=== PATIENT | male | born 1945 | race Caucasian/White ===

== ENCOUNTER 2023-02-19 08:57 | Inpatient (IN) | payer MEDICARE ==
[2023-02-19] MEDS ORDERED: Cefepime 2 GM VIAL ONE (09:13)
[2023-02-19] MEDS ORDERED: Acetaminophen 500 MG TAB ONE (09:26)
[2023-02-19] MEDS ORDERED: VANCOMYCIN 1.75 GM/500 ML BAG 1.75 GM in Premix Bag 1 BAG IVPB SCH (09:30)
[2023-02-19 09:54] LABS: Hemoglobin 13.7 g/dL (14.0-18.0); Mean Corpuscular HGB CONC 33.6 g/dL (32.0-36.0); Mean Corpuscular Hemoglobin 31.9 pg (27.0-31.0); Mean Platelet Volume 7.4 fL (7.4-10.4); Platelet Count 206 10x3/uL (130-400); RBC Distribution Width 12.8 % (11.5-14.5); Red Blood Cell (RBC) Count 4.28 mill/uL (4.70-6.10); White Blood Cell (WBC) Count 14.1 10x3/uL (4.8-10.8)
[2023-02-19 10:13] LABS: INR-International Normal Ratio 1.2; PTT 31.6 sec (22.9-36.1); Prothrombin Time 15.8 sec (12.0-14.7)
[2023-02-19 10:18] LABS: ALT (SGPT) 926 U/L (8-55); AST (SGOT) 916 U/L (5-34); Albumin 3.6 g/dL (3.4-4.8); Alkaline Phosphatase 76 U/L (40-110); Anion Gap 16 mmol/L (10-20); BUN (Urea Nitrogen) 30 mg/dL (8.4-25.7); Bilirubin, Total 1.2 mg/dL (0.2-1.2); Calc. Creatinine Clearance 0 mL/min (70-130); Calcium 9.7 mg/dL (7.8-10.44); Carbon Dioxide 21 mmol/L (23-31); Chloride 104 mmol/L (98-107); Estimated GFR 24; Globulin 3.4 g/dL (2.4-3.5); Glucose 131 mg/dL (83-110); Potassium 4.2 mmol/L (3.5-5.1); Sodium 137 mmol/L (136-145)
[2023-02-19 10:24] LABS: Band 44 % (5-11); MDiff Complete? YES; Metamyelocyte 12 % (0-0); Myelocyte 1 % (0-0); Neutrophil 43 % (42-75); Platelet Morphology Comment Appears Adequate; Polychromasia SLIGHT = 2-3 cells (100X) (0-2/hpf); Reflex for Review?? YES; Vacuoles MARKED
[2023-02-19 11:16] LABS: Bacteria/HPF 4+ HPF (None Seen); Bilirubin Negative (Negative); Blood, Urine 2+ (Negative); Clarity Turbid (Clear); Glucose, Urine (Dipstick) Normal (Negative); Ketone, Urine Negative (Negative); Leukocyte 250 Leu/uL (Negative); Nitrite 1+ (Negative); Protein, Urine (Dipstick) 20 mg/dL (Neg-Trace); Squamous Epithelial 0-3 HPF (0-3); Urobilinogen Normal mg/dL (Less than 2); WBC/HPF 21-50 HPF (0-3); pH, Urine 6.5 (5.0-9.0)
[2023-02-19] MEDS ORDERED: NOREPINEPHRINE 8 MG/250 ML-D5W 250 ML ONE (12:46)
[2023-02-19 13:03] LABS: SARS-CoV-2 NAA Rapid Test Not Detected (NotDetected)
[2023-02-19 13:52] LABS: Lactic Acid 3.1 mmol/L (0.5-2.2)
[2023-02-19] MEDS ORDERED: Calcium Carbonate 500 MG ChewTAB PO PRN (15:20)
[2023-02-19] MEDS ORDERED: Ondansetron PF 4 MG/2 ML Vial IVP PRN (15:20)
[2023-02-19] MEDS ORDERED: Ondansetron ODT 4 MG TAB PO PRN (15:20)
[2023-02-19] MEDS ORDERED: NOREPINEPHRINE 8 MG/250 ML-D5W 250 ML IVPB PRN (15:24)
[2023-02-19] MEDS ORDERED: VANCOMYCIN IVPB PRN (15:29)
[2023-02-19 18:27] LABS: Acetaminophen Less than 10.0 mcg/mL (10.0-30.0); Magnesium 1.8 mg/dL (1.6-2.6)
[2023-02-19 18:47] LABS: HBCM Index 0.09 S/CO (0-0.79); HBSAg Index 0.29 S/CO (0-0.99); Hep A IgM AB Non-Reactive S/CO (NonReactive); Hep A IgM S/CO 0.21 S/CO (0-0.79); Hep B Surf Ag Non-Reactive S/CO (NonReactive); Hep C IgG Ab Non-Reactive S/CO (NonReactive); Hep C Index 0.15 S/CO (0-0.79); Hepatitis B Core IgM Abs Non-Reactive S/CO (NonReactive)
[2023-02-19] MEDS ORDERED: Magnesium 2 GM/50 ML(in water) 2 GM in Premix Bag 1 BAG IVPB SCH (19:00)
[2023-02-19 20:00] LABS: Albumin 3.3 g/dL (3.4-4.8)
[2023-02-19 20:01] LABS: Chloride 110 mmol/L (98-107); Potassium 4.3 mmol/L (3.5-5.1); Sodium 141 mmol/L (136-145)
[2023-02-19 20:02] LABS: Calcium 8.9 mg/dL (7.8-10.44); Glucose 111 mg/dL (83-110)
[2023-02-19 20:03] LABS: Protein, Total 6.3 g/dL (5.8-8.1)
[2023-02-19 20:04] LABS: Anion Gap 17 mmol/L (10-20); Bilirubin, Total 1.1 mg/dL (0.2-1.2); Carbon Dioxide 18 mmol/L (23-31)
[2023-02-19 20:05] LABS: Alkaline Phosphatase 74 U/L (40-110)
[2023-02-19 20:06] LABS: Calc. Creatinine Clearance 32 mL/min (70-130); Estimated GFR 29
[2023-02-19 20:07] LABS: BUN (Urea Nitrogen) 31 mg/dL (8.4-25.7)
[2023-02-19 20:08] LABS: ALT (SGPT) 700 U/L (8-55); AST (SGOT) 464 U/L (5-34)
[2023-02-19] MEDS: Lactated Ringer's 1,000 ML IV SCH ×2 (20:14→23:36)
[2023-02-19] MEDS ORDERED: Vancomycin Dose by Levels Sliding Scale (Wt 71-99) FS SCH (20:15)
[2023-02-19] MEDS: Heparin 5,000 UNITS/ML VIAL SC SCH (20:33)
[2023-02-19] MEDS ORDERED: Rosuvastatin 10 MG TAB PO SCH (21:00)
[2023-02-19] MEDS ORDERED: Aspirin 81 mg Enteric Coated Tablet PO SCH (21:00)
[2023-02-19] MEDS: Cefepime 1 GM in Sodium Chloride 0.9% 100 ML IVPB SCH (22:03)
[2023-02-19] MEDS ORDERED: Lactated Ringer's 500 ML IV SCH ×2 (22:30→23:30)
[2023-02-19] MEDS: Acetaminophen 650 MG Suppository PR PRN (23:31)
[2023-02-20 03:20] LABS: Hemoglobin 11.6 g/dL (14.0-18.0); Mean Corpuscular HGB CONC 34.1 g/dL (32.0-36.0); Mean Corpuscular Hemoglobin 32.5 pg (27.0-31.0); Mean Corpuscular Volume 95.3 fl (78.0-98.0); Mean Platelet Volume 7.5 fL (7.4-10.4); Platelet Count 171 10x3/uL (130-400); RBC Distribution Width 12.8 % (11.5-14.5); Red Blood Cell (RBC) Count 3.57 mill/uL (4.70-6.10); White Blood Cell (WBC) Count 21.8 10x3/uL (4.8-10.8)
[2023-02-20 03:51] LABS: ALT (SGPT) 511 U/L (8-55); AST (SGOT) 267 U/L (5-34); Alkaline Phosphatase 74 U/L (40-110); Anion Gap 12 mmol/L (10-20); BUN (Urea Nitrogen) 28 mg/dL (8.4-25.7); Bilirubin, Total 1.2 mg/dL (0.2-1.2); Calc. Creatinine Clearance 40 mL/min (70-130); Calcium 8.8 mg/dL (7.8-10.44); Carbon Dioxide 21 mmol/L (23-31); Chloride 112 mmol/L (98-107); Estimated GFR 37; Globulin 2.8 g/dL (2.4-3.5); Glucose 91 mg/dL (83-110); Magnesium 2.4 mg/dL (1.6-2.6); Potassium 4.3 mmol/L (3.5-5.1); Protein, Total 5.8 g/dL (5.8-8.1); Sodium 141 mmol/L (136-145)
[2023-02-20 04:03] LABS: Phosphorus 2.8 mg/dL (2.3-4.7)
[2023-02-20 04:52] LABS: Band 32 % (5-11); MDiff Complete? YES; Neutrophil 49 % (42-75)
[2023-02-20 04:53] LABS: Lymphocytes 9 % (21-51); Metamyelocyte 3 % (0-0); Monocytes 7 % (0-10)
[2023-02-20] MEDS: Cefepime 1 GM in Sodium Chloride 0.9% 100 ML IVPB SCH ×2 (08:28→21:11)
[2023-02-20] MEDS: Heparin 5,000 UNITS/ML VIAL SC SCH ×3 (08:28→21:12)
[2023-02-20] MEDS: Bupropion 150 MG XL TAB PO SCH (08:29)
[2023-02-20] MEDS: Citalopram 20 MG TAB PO SCH (08:29)
[2023-02-20 09:36] LABS: Vancomycin, Random 11.4 ug/mL (See Comment)
[2023-02-20] MEDS: Lactated Ringer's 1,000 ML IV SCH ×2 (11:04→21:12)
[2023-02-20] MEDS: VANCOMYCIN 1.25 GM/250 ML BAG 1.25 GM in Premix Bag 1 BAG IVPB SCH (13:48)
[2023-02-21 04:23] LABS: ALT (SGPT) 315 U/L (8-55); AST (SGOT) 108 U/L (5-34); Alkaline Phosphatase 109 U/L (40-110); Anion Gap 13 mmol/L (10-20); BUN (Urea Nitrogen) 19 mg/dL (8.4-25.7); Bilirubin, Total 0.7 mg/dL (0.2-1.2); Calc. Creatinine Clearance 58 mL/min (70-130); Carbon Dioxide 21 mmol/L (23-31); Chloride 109 mmol/L (98-107); Estimated GFR 59; Globulin 2.9 g/dL (2.4-3.5); Glucose 90 mg/dL (83-110); Magnesium 2.1 mg/dL (1.6-2.6); Potassium 4.1 mmol/L (3.5-5.1); Protein, Total 5.9 g/dL (5.8-8.1); Sodium 139 mmol/L (136-145)
[2023-02-21 04:29] LABS: Band 40 % (5-11); Hemoglobin 11.2 g/dL (14.0-18.0); Hypochromia SLIGHT = 6-15 cells (100X) (0-5/hpf); Lymphocytes 6 % (21-51); MDiff Complete? YES; Mean Corpuscular HGB CONC 34.7 g/dL (32.0-36.0); Mean Corpuscular Hemoglobin 33.1 pg (27.0-31.0); Mean Corpuscular Volume 95.3 fl (78.0-98.0); Mean Platelet Volume 8.1 fL (7.4-10.4); Monocytes 5 % (0-10); Neutrophil 49 % (42-75); Platelet Count 148 10x3/uL (130-400); Platelet Morphology Comment Appears Adequate; RBC Distribution Width 12.7 % (11.5-14.5); Red Blood Cell (RBC) Count 3.38 mill/uL (4.70-6.10); White Blood Cell (WBC) Count 22.9 10x3/uL (4.8-10.8)
[2023-02-21] MEDS: Cefepime 1 GM in Sodium Chloride 0.9% 100 ML IVPB SCH ×2 (10:05→21:28)
[2023-02-21] MEDS: Heparin 5,000 UNITS/ML VIAL SC SCH (10:06)
[2023-02-21] MEDS: Citalopram 20 MG TAB PO SCH (10:06)
[2023-02-21] MEDS: Bupropion 150 MG XL TAB PO SCH (10:06)
[2023-02-21] MEDS: Lactated Ringer's 1,000 ML IV SCH ×2 (10:07→17:20)
[2023-02-21] MEDS: Acetaminophen 650 MG Suppository PR PRN (10:22)
[2023-02-21 13:32] LABS: Vancomycin, Trough 13.3 ug/mL
[2023-02-21] MEDS: VANCOMYCIN 1.25 GM/250 ML BAG 1.25 GM in Premix Bag 1 BAG IVPB SCH (15:25)
[2023-02-22] MEDS: Lactated Ringer's 1,000 ML IV SCH ×2 (03:45→14:46)
[2023-02-22 05:12] LABS: ALT (SGPT) 221 U/L (8-55); AST (SGOT) 61 U/L (5-34); Albumin 3.2 g/dL (3.4-4.8); Alkaline Phosphatase 115 U/L (40-110); Anion Gap 13 mmol/L (10-20); BUN (Urea Nitrogen) 17 mg/dL (8.4-25.7); Bilirubin, Total 0.6 mg/dL (0.2-1.2); Calc. Creatinine Clearance 61 mL/min (70-130); Calcium 8.8 mg/dL (7.8-10.44); Carbon Dioxide 23 mmol/L (23-31); Chloride 108 mmol/L (98-107); Estimated GFR 62; Globulin 2.6 g/dL (2.4-3.5); Glucose 91 mg/dL (83-110); Potassium 3.9 mmol/L (3.5-5.1); Protein, Total 5.8 g/dL (5.8-8.1); Sodium 140 mmol/L (136-145)
[2023-02-22 05:19] LABS: Phosphorus 2.8 mg/dL (2.3-4.7)
[2023-02-22 05:40] LABS: Band 2 % (5-11); Eosinophils 7 % (0-10); Hemoglobin 11.8 g/dL (14.0-18.0); Lymphocytes 12 % (21-51); MDiff Complete? YES; Mean Corpuscular HGB CONC 34.3 g/dL (32.0-36.0); Mean Corpuscular Hemoglobin 32.6 pg (27.0-31.0); Mean Platelet Volume 8.1 fL (7.4-10.4); Monocytes 4 % (0-10); Neutrophil 75 % (42-75); Platelet Count 161 10x3/uL (130-400); Platelet Morphology Comment Appears Adequate; RBC Distribution Width 12.6 % (11.5-14.5); RBC Morphology Normal; White Blood Cell (WBC) Count 15.5 10x3/uL (4.8-10.8)
[2023-02-22] MEDS ORDERED: Simethicone 40 MG/0.6 ML Drop 30 ML BOT PO PRN (09:19)
[2023-02-22] MEDS ORDERED: Simethicone Chewable 80 MG TAB PO PRN (09:21)
[2023-02-22] MEDS: Citalopram 20 MG TAB PO SCH (10:24)
[2023-02-22] MEDS: Bupropion 150 MG XL TAB PO SCH (10:25)
[2023-02-22] MEDS: Simethicone Chewable 80 MG TAB PO SCH ×4 (10:30→21:29)
[2023-02-22] MEDS: Cefepime 1 GM in Sodium Chloride 0.9% 100 ML IVPB SCH (10:34)
[2023-02-22] MEDS ORDERED: Lactated Ringer's 1,000 ML IV SCH (17:56)
[2023-02-23 05:23] LABS: Band 4 % (5-11); Eosinophils 2 % (0-10); Hemoglobin 12.8 g/dL (14.0-18.0); Hypochromia SLIGHT = 6-15 cells (100X) (0-5/hpf); Lymphocytes 17 % (21-51); MDiff Complete? YES; Mean Corpuscular HGB CONC 34.4 g/dL (32.0-36.0); Mean Corpuscular Hemoglobin 32.2 pg (27.0-31.0); Mean Corpuscular Volume 93.8 fl (78.0-98.0); Mean Platelet Volume 7.4 fL (7.4-10.4); Monocytes 11 % (0-10); Neutrophil 66 % (42-75); Platelet Count 168 10x3/uL (130-400); RBC Distribution Width 12.6 % (11.5-14.5); Red Blood Cell (RBC) Count 3.97 mill/uL (4.70-6.10); White Blood Cell (WBC) Count 8.1 10x3/uL (4.8-10.8)
[2023-02-23 06:02] LABS: ALT (SGPT) 163 U/L (8-55); AST (SGOT) 45 U/L (5-34); Albumin 3.3 g/dL (3.4-4.8); Alkaline Phosphatase 100 U/L (40-110); Anion Gap 14 mmol/L (10-20); BUN (Urea Nitrogen) 13 mg/dL (8.4-25.7); Bilirubin, Total 0.7 mg/dL (0.2-1.2); Calc. Creatinine Clearance 66 mL/min (70-130); Calcium 9.1 mg/dL (7.8-10.44); Carbon Dioxide 23 mmol/L (23-31); Chloride 105 mmol/L (98-107); Estimated GFR 68; Globulin 3.2 g/dL (2.4-3.5); Glucose 95 mg/dL (83-110); Potassium 3.3 mmol/L (3.5-5.1); Protein, Total 6.5 g/dL (5.8-8.1); Sodium 139 mmol/L (136-145)
[2023-02-23] MEDS ORDERED: Potassium Chloride 20 MEQ TAB PO SCH (08:00)
[2023-02-23] MEDS ORDERED: Iopamidol-370 76% 500 ML MDV (1 ML CHARGE) ONE (08:47)
[2023-02-23] MEDS ORDERED: GASTROGRAFIN 30 ML BOT ONE (08:47)
[2023-02-23] MEDS: Propranolol HCl 20 MG TAB PO SCH ×2 (09:55→20:03)
[2023-02-23] MEDS: Citalopram 20 MG TAB PO SCH (09:56)
[2023-02-23] MEDS: Losartan 25 MG TAB PO SCH (09:56)
[2023-02-23] MEDS: Polyethylene Glycol 3350 17 GM Packet PO SCH (09:58)
[2023-02-23] MEDS ORDERED: Lactated Ringer's 1,000 ML IV SCH (10:00)
[2023-02-23] MEDS: Bupropion 150 MG XL TAB PO SCH (10:13)
[2023-02-23] MEDS: Fluticasone Propionate Nasal Spray 16 gm Bottle NASAL SCH (11:18)
[2023-02-23] MEDS: Simethicone Chewable 80 MG TAB PO SCH (11:19)
[2023-02-23] MEDS ORDERED: Bisacodyl 10 MG SUPP PR SCH (13:15)
[2023-02-23] MEDS: Senokot S 8.6-50 MG TAB PO SCH (20:03)
[2023-02-24 05:26] LABS: Anion Gap 15 mmol/L (10-20); BUN (Urea Nitrogen) 14 mg/dL (8.4-25.7); Calc. Creatinine Clearance 60 mL/min (70-130); Carbon Dioxide 21 mmol/L (23-31); Chloride 106 mmol/L (98-107); Potassium 3.8 mmol/L (3.5-5.1); Sodium 138 mmol/L (136-145)
[2023-02-24 05:27] LABS: ALT (SGPT) 136 U/L (8-55); AST (SGOT) 45 U/L (5-34); Albumin 3.3 g/dL (3.4-4.8); Alkaline Phosphatase 92 U/L (40-110); Bilirubin, Total 0.8 mg/dL (0.2-1.2); Calcium 9.3 mg/dL (7.8-10.44); Estimated GFR 64; Globulin 3.2 g/dL (2.4-3.5); Glucose 92 mg/dL (83-110); Protein, Total 6.5 g/dL (5.8-8.1)
[2023-02-24 06:18] LABS: Band 2 % (5-11); Eosinophils 5 % (0-10); Hemoglobin 12.8 g/dL (14.0-18.0); Lymphocytes 29 % (21-51); MDiff Complete? YES; Mean Corpuscular HGB CONC 34.7 g/dL (32.0-36.0); Mean Corpuscular Hemoglobin 32.8 pg (27.0-31.0); Mean Corpuscular Volume 94.5 fl (78.0-98.0); Mean Platelet Volume 7.6 fL (7.4-10.4); Monocytes 9 % (0-10); Myelocyte 2 % (0-0); Neutrophil 52 % (42-75); Platelet Count 183 10x3/uL (130-400); Platelet Morphology Comment Appears Adequate; RBC Distribution Width 12.7 % (11.5-14.5); RBC Morphology Normal; Red Blood Cell (RBC) Count 3.91 mill/uL (4.70-6.10); White Blood Cell (WBC) Count 9.3 10x3/uL (4.8-10.8)
[2023-02-24] MEDS: Senokot S 8.6-50 MG TAB PO SCH ×2 (10:28→21:09)
[2023-02-24] MEDS: Bupropion 150 MG XL TAB PO SCH (10:28)
[2023-02-24] MEDS: Losartan 25 MG TAB PO SCH (10:28)
[2023-02-24] MEDS: Propranolol HCl 20 MG TAB PO SCH ×2 (10:28→21:08)
[2023-02-24] MEDS: Fluticasone Propionate Nasal Spray 16 gm Bottle NASAL SCH (10:29)
[2023-02-24] MEDS: Citalopram 20 MG TAB PO SCH (10:29)
[2023-02-24] MEDS: Polyethylene Glycol 3350 17 GM Packet PO SCH (10:30)
[2023-02-24 13:25] VITALS: BMI 27.6
[2023-02-25 05:13] LABS: ALT (SGPT) 130 U/L (8-55); AST (SGOT) 59 U/L (5-34); Albumin 3.4 g/dL (3.4-4.8); Alkaline Phosphatase 82 U/L (40-110); Anion Gap 15 mmol/L (10-20); BUN (Urea Nitrogen) 14 mg/dL (8.4-25.7); Bilirubin, Total 0.6 mg/dL (0.2-1.2); Calc. Creatinine Clearance 63 mL/min (70-130); Calcium 8.9 mg/dL (7.8-10.44); Carbon Dioxide 21 mmol/L (23-31); Chloride 106 mmol/L (98-107); Estimated GFR 70; Globulin 3.1 g/dL (2.4-3.5); Glucose 82 mg/dL (83-110); Potassium 3.3 mmol/L (3.5-5.1); Protein, Total 6.5 g/dL (5.8-8.1); Sodium 139 mmol/L (136-145)
[2023-02-25 05:16] LABS: Band 5 % (5-11); Eosinophils 1 % (0-10); Hemoglobin 12.6 g/dL (14.0-18.0); Hypochromia SLIGHT = 6-15 cells (100X) (0-5/hpf); Lymphocytes 31 % (21-51); MDiff Complete? YES; Mean Corpuscular Hemoglobin 32.5 pg (27.0-31.0); Mean Corpuscular Volume 92.9 fl (78.0-98.0); Mean Platelet Volume 7.7 fL (7.4-10.4); Monocytes 19 % (0-10); Neutrophil 41 % (42-75); Platelet Count 190 10x3/uL (130-400); Platelet Morphology Comment Appears Adequate; RBC Distribution Width 12.7 % (11.5-14.5); Reactive Lymphocytes 3 % (0-10); Red Blood Cell (RBC) Count 3.87 mill/uL (4.70-6.10); White Blood Cell (WBC) Count 8.9 10x3/uL (4.8-10.8)
[2023-02-25] MEDS ORDERED: Polyethylene Glycol 3350 17 GM Packet PO PRN (05:43)
[2023-02-25] MEDS ORDERED: Potassium Chloride 20 MEQ TAB PO SCH (05:45)
[2023-02-25] MEDS ORDERED: Polyethylene Glycol 3350 17 GM Packet PO SCH (09:00)
[2023-02-25] MEDS: Losartan 25 MG TAB PO SCH (09:14)
[2023-02-25] MEDS: Propranolol HCl 20 MG TAB PO SCH (09:15)
[2023-02-25] MEDS: Citalopram 20 MG TAB PO SCH (09:17)
[2023-02-25] MEDS: Bupropion 150 MG XL TAB PO SCH (09:18)
[2023-02-25] MEDS: Fluticasone Propionate Nasal Spray 16 gm Bottle NASAL SCH (09:18)
[2023-02-25] MEDS ORDERED: Phenol 118 ML BOT PO PRN (09:33)
[2023-02-25 11:16] LABS: Magnesium 2.1 mg/dL (1.6-2.6)
[2023-02-25 11:44] VITALS: TEMP 98
[2023-02-25 16:11] VITALS: BP 120/64
== END 2023-02-25 17:17 | disposition home or self-care (01) | DRG 871 ==
LOC: ERS 08:57 → IMCU/EMU 14:51 → 2NO 02-21 04:15
PROVIDERS: ADMIT Student in an Organized Health Care Education/Training Program; ATTEND Student in an Organized Health Care Education/Training Program
PROC: 3E03329 Introduction of Other Anti-infective into Peripheral Vein, Percutaneous Approach (ICD-10-PCS; principal; 2023-02-19)
PROC: 3E033XZ Introduction of Vasopressor into Peripheral Vein, Percutaneous Approach (ICD-10-PCS; 2023-02-19)
DX: A41.81 Sepsis due to Enterococcus (principal); G93.41 Metabolic encephalopathy; R65.21 Severe sepsis with septic shock; K72.00 Acute and subacute hepatic failure without coma; N39.0 Urinary tract infection, site not specified; N17.9 Acute kidney failure, unspecified; K21.9 Gastro-esophageal reflux disease without esophagitis; N40.0 Benign prostatic hyperplasia without lower urinary tract symptoms; D50.9 Iron deficiency anemia, unspecified; E78.5 Hyperlipidemia, unspecified; I10 Essential (primary) hypertension; F41.9 Anxiety disorder, unspecified; F32.A Depression, unspecified; I12.9 Hypertensive chronic kidney disease with stage 1 through stage 4 chronic kidney disease, or unspecified chronic kidney disease; N18.30 Chronic kidney disease, stage 3 unspecified; I48.0 Paroxysmal atrial fibrillation; Z88.8 Allergy status to other drugs, medicaments and biological substances; Z88.1 Allergy status to other antibiotic agents; Z79.899 Other long term (current) drug therapy
CPT/HCPCS: 36415; 36416; 70450; 71045; 74018; 74177; 76705; 80053; 80074; 80143; 80202; 81003; 81015; 82140; 82728; 83605; 83735; 83880; 84100; 84145; 84484; 85025; 85060; 85610; 85730; 87040; 87077; 87086; 87186; 93005; 93306; 94760; 80307; J0692; J1644; J1650; J3370; J3475; J3490; J7120; Q9963; Q9967